=== PATIENT | female | born 1950 | race Caucasian/White ===

== ENCOUNTER 2017-07-30 15:49 | Observation (INO) | payer BC ==
[2017-07-30] MEDS: SODIUM CHLORIDE 0.9% FLUSH 10 ML SOL IV PRN ×2 (16:05→23:58)
[2017-07-30] MEDS ORDERED: ONDANSETRON HCL 4 MG/2 ML SOL IV ONE ×2 (16:06→17:05)
[2017-07-30] MEDS ORDERED: SODIUM CHLORIDE 0.9% 1000ML 1,000 ML IV ONE (16:06)
[2017-07-30] MEDS ORDERED: ONDANSETRON HCL 4 MG/2 ML SOL ONE ×2 (16:07→17:04)
[2017-07-30 16:16] LABS: BASOPHILS % (AUTO) 1 % (0-3); EOSINOPHILS % (AUTO) 3 % (0-9); HEMATOCRIT 39 % (35-47); MEAN CORPUSCULAR HGB CONC 34.5 gm/dl (32.0-36.0); MEAN CORPUSCULAR VOLUME 86 fL (81-99); MONOCYTES % (AUTO) 7.6 % (0-12); NEUTROPHILS % (AUTO) 48.1 % (37-80)
[2017-07-30 16:42] LABS: ALBUMIN 3.8 gm/dl (3.4-5.0); ALT 22 IU/L (14-63); CALCIUM 8.8 mg/dl (8.5-10.1); GLOM FILT RATE 73 mL/min (>60); SODIUM 142 mMol/L (136-145)
[2017-07-30 16:45] LABS: POTASSIUM 2.9 mMol/L (3.5-5.1)
[2017-07-30] MEDS ORDERED: POTASSIUM CHLORIDE 10 MEQ TER PO ONE (16:45)
[2017-07-30] MEDS ORDERED: POTASSIUM CHLORIDE 2 MEQ/ML 60 MEQ, LIDOCAINE HCL 1% MDV 2 ML in SODIUM CHLORIDE 0.9% 1... IV ONE ×2 (16:52→23:00)
[2017-07-30] MEDS ORDERED: POTASSIUM CHLORIDE 10 MEQ TER ONE (16:59)
[2017-07-30] MEDS ORDERED: POTASSIUM CHLORIDE 2 MEQ/ML SOL IV ONE ×2 (16:59→20:35)
[2017-07-30 17:08] LABS: THYROID STIMULATING HORMONE 6.755 uIU/ml (0.358-3.740)
[2017-07-30] MEDS ORDERED: LIDOCAINE HCL 1% MPF SOL ONE ×2 (17:08→20:36)
[2017-07-30] MEDS ORDERED: ONDANSETRON HCL 4 MG/2 ML SOL IV PRN (17:57)
[2017-07-30 18:25] LABS: APPEARANCE,URINE Clear; BILIRUBIN,URINE NEGATIVE (NEGATIVE); COLOR,URINE Yellow; GLUCOSE, URINE (UA) NEGATIVE (NEGATIVE); KETONES,URINE 1+ (NEGATIVE); LEUKOCYTE ESTERASE ,URINE NEGATIVE (NEGATIVE); NITRATE,URINE NEGATIVE (NEGATIVE); OCCULT BLOOD,URINE NEGATIVE (NEG-TRACE); UROBILINOGEN,URINE 0.2 (0.2-1.0 EU)
[2017-07-30 18:36] LABS: RBC,URINE NEG (0-3AV/HPF); WBC,URINE 0-1 (0-5AV/HPF)
[2017-07-30 20:48] VITALS: RESP 18
[2017-07-30] MEDS ORDERED: ACETAMINOPHEN 325 MG PO PRN (21:13)
[2017-07-30 23:34] VITALS: BP 159/85; PULSE 84; TEMP 97; O2SAT 92
[2017-07-31] MEDS ORDERED: HYDRALAZINE HYDROCHLORIDE 10 MG TAB PO SCH (03:15)
== END 2017-07-31 03:55 | disposition short-term general hospital (02) ==
LOC: ED 15:49 → UNDOADMOB 17:36 → ACUTE CARE 17:36
PROVIDERS: ADMIT Family Medicine; ATTEND Family Medicine
DX: I63.9 Cerebral infarction, unspecified (principal); R53.1 Weakness; T68.XXXA Hypothermia, initial encounter; E87.6 Hypokalemia; R61 Generalized hyperhidrosis; R11.2 Nausea with vomiting, unspecified
CPT/HCPCS: 36415; 70450; 71045; 80053; 80307; 81001; 83735; 84100; 84443; 84484; 85025; 87040; 93005; 96365; 96366; 96374; 99217; 99218; 99285; J2405; J3480; A9270-GY; J2001